=== PATIENT | female | born 1985 | race Caucasian/White ===

== ENCOUNTER → 2020-09-17 | Outpatient (CLI) | payer BC ==
[~2020-09-17] MED LIST: AMOXICILLIN500 MG PO; AUGMENTIN 875 M1 TAB PO; DICLOFENAC POTA50 MG PO; Fioricet 325 MG1 TAB PO; HYDROCODONE BIT1 T11 PO; LEVOFLOXACIN500 MG PO; MOTRIN800 MG PO; Metformin Hydr500 MG PO; NAPROSYN500 MG PO; PREDNISONE20 M1 PO; PREVACID30 M1 PO; PROAIR HFA8.5 GM INH; PROVERA10 MG PO; ROBITUSSIN DM 105 ML PO; TRAMADOL HCL50 MG PO; VICODIN ES 7501 TAB PO; ZITHROMAX250 MG PO
== END | disposition home or self-care (01) ==
LOC: COVID19 10:38
PROVIDERS: ATTEND Family Medicine
DX: Z20.828 Contact with and (suspected) exposure to other viral communicable diseases (principal)

== ENCOUNTER → 2020-09-24 | Outpatient (CLI) | payer BC | END | disposition home or self-care (01) | LOC: COVID19 11:35 | PROVIDERS: ATTEND Family Medicine | DX: Z20.828 Contact with and (suspected) exposure to other viral communicable diseases (principal) ==

== ENCOUNTER → 2021-07-05 | Outpatient (CLI) | payer BC | END | disposition home or self-care (01) | LOC: COVID19 15:56 | PROVIDERS: ATTEND Internal Medicine | DX: U07.1 COVID-19 (principal) ==

== ENCOUNTER → 2022-02-21 | Outpatient (CLI) | payer BC | END | disposition home or self-care (01) | LOC: COVID19 10:00 | PROVIDERS: ATTEND Internal Medicine | DX: U07.1 COVID-19 (principal) ==

== ENCOUNTER → 2022-05-18 | Outpatient (CLI) | payer BC | END | disposition home or self-care (01) | LOC: D 10:23 | PROVIDERS: ATTEND Family Medicine | DX: E11.69 Type 2 diabetes mellitus with other specified complication (principal); E66.9 Obesity, unspecified ==